=== PATIENT | female | born 1975 | race American Indian/Alaskan Native ===

== ENCOUNTER 2018-04-03 07:44 | Inpatient (IN) | payer MEDICAID ==
[2018-04-03 09:25] LABS: BASO # 0.1 K/uL (0.0-0.2); BASO % 1.3 % (0.0-2.0); EOS % 0.3 % (0.0-4.0); HEMOGLOBIN 11.9 g/dL (11.0-16.0); LYMPH # 0.8 K/uL (1.0-4.3); MEAN CELL VOLUME 73.5 fL (81.0-99.0); MEAN CORPUSCULAR HEMOGLOBIN 24.6 pg (27.0-31.0); MEAN CORPUSCULAR HGB CONC 33.5 g/dL (33.0-37.0); MONO # 0.3 K/uL (0.0-0.8); MONO % 6.9 % (0.0-10.0); NEUT # 3.3 K/uL (1.8-7.0); NEUT % 73.5 % (50.0-75.0); NRBC % 0.1 % (0.0-2.0); RBC 4.84 Mil/uL (3.80-5.20); WHITE BLOOD COUNT 4.5 K/uL (4.8-10.8)
[2018-04-03 09:34] LABS: ALBUMIN 3.8 g/dL (3.5-5.0); ALT/SGPT 82 U/L (9-52); AST/SGOT 114 U/L (14-36); BLOOD UREA NITROGEN 6 mg/dL (7-17); CALCIUM 8.9 mg/dl (8.6-10.4); GFR NON-AFRICAN AMERICAN > 60; LIPASE 170 U/L (23-300)
[2018-04-03] MEDS ORDERED: Magnesium Sulfate 1 gm in D5W 1 GM/100 ML BAG IVPB ONE ×2 (09:40→10:17)
[2018-04-03 10:04] LABS: BARBITURATES, UR NEGATIVE (NEGATIVE); BENZODIAZEPINES, UR NEGATIVE (NEGATIVE); OPIATES, UR NEGATIVE (NEGATIVE); PHENCYCLIDINE, UR NEGATIVE (NEGATIVE)
--- NOTE | 2018-04-03 12:14 | C.PDOC ---
History Of Present Illness 42 year old female presents to the ED under police custody for medical clearance of her multiple complaints. Patient reports history of PE in October, and states she has been noncompliant with Eliquis for 1.5 months. Patient also complains of abdominal pain and decreased PO intake for two weeks. Patient also states she had her last drink at around 1000 yesterday and believes she is withdrawing. She denies fever, chills, chest pain. Time Seen by Provider: 04/03/18 08:24 Chief Complaint (Nursing): Medical Clearance History Per: Patient History/Exam Limitations: no limitations Onset/Duration Of Symptoms: Days Current Symptoms Are (Timing): Still Present Additional History Per: Patient Past Medical History Reviewed: Historical Data, Nursing Documentation, Vital Signs Vital Signs: Last Vital Signs Temp 98.2 F 04/05/18 07:00 Pulse 104 H 04/05/18 07:00 Resp 20 04/05/18 07:00 BP 100/70 04/05/18 07:00 Pulse Ox 100 04/05/18 10:05 - Medical History PMH: Anemia, Pulmonary Embolism Other PMH: alcohol abuse Other Surgeries: gastric bypass surgery Family History: States: Unknown Family Hx - Social History Hx Alcohol Use: Yes Hx Substance Use: No (denies) - Immunization History Hx Tetanus Toxoid Vaccination: No Hx Influenza Vaccination: No Hx Pneumococcal Vaccination: No Review Of Systems Constitutional: Positive for: Other (decreased PO intake ). Negative for: Fever , Chills Cardiovascular: Negative for: Chest Pain, Light Headedness Respiratory: Negative for: Cough, Shortness of Breath, Hemoptysis Gastrointestinal: Positive for: Nausea, Abdominal Pain. Negative for: Vomiting Neurological: Negative for: Weakness, Numbness Psych: Positive for: Withdrawal Physical Exam - Physical Exam Appears: Non-toxic, No Acute Distress Skin: Normal Color, Warm, Dry Head: Atraumatic, Normacephalic Eye(s): bilateral: Normal Inspection Oral Mucosa: Moist Neck: Supple Chest: Symmetrical, No Deformity, No Tenderness Cardiovascular: Rhythm Regular, No Murmur Respiratory: Normal Breath Sounds, No Rales, No Rhonchi, No Wheezing Gastrointestinal/Abdominal: Bowel Sounds, Soft, Tenderness (mild, upper abdomen ), No Distention, No Guarding, No Rebound, Other (multiple healed laparoscopic scars ) Extremity: Normal ROM, No Calf Tenderness, Capillary Refill (less than 2 seconds ) Neurological/Psych: Oriented x3, Normal Speech, Normal Cognition, Cerebellar Signs, Normal Sensation, Other (mild tremor noted to hands ) ED Course And Treatment - Laboratory Results Result Diagrams: 04/05/18 07:43 04/05/18 07:43 O2 Sat by Pulse Oximetry: 100 (on RA) Pulse Ox Interpretation: Normal - CT Scan/US CT Chest Other Rad Studies (CT/US): Read By Radiologist, Radiology Report Reviewed CT/US Interpretation: Date of service: 04/03/18. CTA chest PE protocol. Indication: History of PE. Technique: Contiguous axial images were obtained through the chest with intravenous contrast enhancement. Sagittal and coronal reconstructions were generated and reviewed. This CT exam was performed using 1 or more of the following dose reduction techniques: Automated exposure control , adjustment of the MAA and/or kV according to patient size, and/or use of iterative reconstruction technique. IV Contrast: 100 mL Visipaque IV. . Radiation dose (DLP): 371.20 MGy-cm. Comparison: None available. Findings: Visualized portions of the inferior thyroid gland appear unremarkable. The mediastinal and hilar vascular structures appear within normal limits. The heart appears within normal limits of size. No large central or segmental pulmonary embolus evident. No focal consolidation. No pleural effusion. No pneumothorax. No suspicious pulmonary nodules measuring greater than 5 mm. Limited visualized portions of the upper abdomen: Severe diffuse hypoattenuation of the liver consistent with hepatic steatosis. Partially imaged hepatomegaly. Postsurgical gastric changes. Moderate-sized hiatal hernia and distal esophageal wall thickening. No acute osseous abnormality is detected. Impression: No large central or segmental pulmonary embolus evident. Limited visualized portions of the upper abdomen: Severe diffuse hypoattenuation of the liver consistent with hepatic steatosis. Partially imaged hepatomegaly. Postsurgical gastric changes. Moderate-sized hiatal hernia and distal esophageal wall thickening. Medical Decision Making Medical Decision Making: Progress: Bloodwork, urinalysis, CT Angio Chest PE ordered and reviewed. Ativan IVP and Pepcid IVP given. Disposition Discussed With : Raleigh Graves Doctor Will See Patient In The: Hospital - Disposition Disposition: HOSPITALIZED Disposition Time: 12:13 Condition: GOOD - Clinical Impression Clinical Impression: Alcohol withdrawal, Abdominal pain - PA / EMERGENCY MEDICAL SERVICE MANAGER / Resident Statement MD/DO has reviewed & agrees with the documentation as recorded. - Scribe Statement The provider has reviewed the documentation as recorded by the Scribe (Pebbles Serrano) All medical record entries made by the Scribe were at my direction and personally dictated by me. I have reviewed the chart and agree that the record accurately reflects my personal performance of the history, physical exam, medical decision making, and the department course for this patient. I have also personally directed, reviewed, and agree with the discharge instructions and disposition.
[2018-04-03] MEDS ORDERED: Iodixanol 320 MG/ML 100 ML BOTTLE IV ONE (13:33)
--- NOTE | 2018-04-03 13:48 | CT ---
Date of service: 04/03/18 CTA chest PE protocol Indication: History of PE Technique: Contiguous axial images were obtained through the chest with intravenous contrast enhancement. Sagittal and coronal reconstructions were generated and reviewed. This CT exam was performed using 1 or more of the following dose reduction techniques: Automated exposure control, adjustment of the MAA and/or kV according to patient size, and/or use of iterative reconstruction technique. IV Contrast: 100 mL Visipaque IV Radiation dose (DLP): 371.20 MGy-cm. Comparison: None available Findings: Visualized portions of the inferior thyroid gland appear unremarkable. The mediastinal and hilar vascular structures appear within normal limits. The heart appears within normal limits of size. No large central or segmental pulmonary embolus evident. No focal consolidation. No pleural effusion. No pneumothorax. No suspicious pulmonary nodules measuring greater than 5 mm. Limited visualized portions of the upper abdomen: Severe diffuse hypoattenuation of the liver consistent with hepatic steatosis. Partially imaged hepatomegaly. Postsurgical gastric changes. Moderate-sized hiatal hernia and distal esophageal wall thickening. No acute osseous abnormality is detected. Impression: No large central or segmental pulmonary embolus evident. Limited visualized portions of the upper abdomen: Severe diffuse hypoattenuation of the liver consistent with hepatic steatosis. Partially imaged hepatomegaly. Postsurgical gastric changes. Moderate-sized hiatal hernia and distal esophageal wall thickening.
--- NOTE | 2018-04-03 15:26 | CP.PCM.HP ---
<JoelGetachew - Last Filed: 04/03/18 18:15> History of Present Illness - History of Present Illness History of Present Illness: PGY-1 H&P for Dr. Graves Patient is a 42 yo female brought into ED under police custody for abdominal pain and tremors, likely secondary to alcohol withdrawal. As per patient, she experiences tremors each morning daily and drinks to subside them. She drinks approximately 4-5 pints of vodka/day. She has drunk heavily for several years and states her last drink was last night. Patient also complains of epigastric abdominal pain that travels to the back and flanks b/l. She endorses nausea/vomiting (6-7 episodes)/diarrhea and dizziness. Of note, patient states she has history of PE and was taking eliquis but has not been taking for the past 2 months. No fevers or chills, chest pain, palpitations, sob , constipation, or dysuria. PMHx: anemia (received transfusion of 2PRBCs in 10/2017 at [facility] in [place]), PE PSHx: gastric bypass (2011), hernia repair (2016)--both in [facility], per patient Family Hx: Mother- of alcoholism, Father- of "heart problems"; 1 living brother Social Hx: 4-5 pints vodka/day, smokes 4-5 cigarettes/day for ~ 10 years, denies illicit drug use Home Medications: omeprazole 40 mg PO daily, eliquis 5 mg PO BID (has not been taking for the past 2 months) Allergies: None PMD: None Present on Admission - Present on Admission Any Indicators Present on Admission: Yes History of DVT/PE: Yes History of Uncontrolled Diabetes: No Urinary Catheter: No Decubitus Ulcer Present: No Review of Systems - Constitutional Constitutional: As Per HPI, Anorexia, Headache. absent: Chills, Excessive Sweating, Fever, Increased Appetite, Night Sweats, Weakness - EENT Eyes: As Per HPI. absent: Blurred Vision, Change in Vision, Diplopia Ears: As Per HPI. absent: Abnormal Hearing Nose/Mouth/Throat: As Per HPI, Dry Mouth - Cardiovascular Cardiovascular: As Per HPI, Leg Edema (mild non-pitting edema L>R). absent: Chest Pain, Diaphoresis - Respiratory Respiratory: As Per HPI. absent: Dyspnea, Wheezing, Stridor - Gastrointestinal Gastrointestinal: As Per HPI, Abdominal Pain (epigastrium), Diarrhea, Nausea, Vomiting. absent: Coffee Ground Emesis, Constipation, Hematemesis, Hematochezia , Melena - Musculoskeletal Musculoskeletal: As Per HPI, Back Pain. absent: Abnormal Gait, Arthralgias, Myalgias, Radiating Pain into Limb - Neurological Neurological: As Per HPI, Dizziness. absent: Abnormal Gait, Abnormal Hearing, Abnormal Speech, Confusion, Numbness, Frequent Falls, Syncope, Tingling - Psychiatric Psychiatric: As Per HPI - Endocrine Endocrine: As Per HPI Past Patient History - Past Social History Smoking Status: Current Some Days Smoker - PULMONARY Hx Pulmonary Embolism: Yes - HEMATOLOGICAL/ONCOLOGICAL Hx Anemia: Yes - PSYCHIATRIC Hx Substance Use: No (denies) - SURGICAL HISTORY Hx Surgeries: Yes Hx Gastric Bypass Surgery: Yes - ANESTHESIA Hx Anesthesia: Yes Hx Anesthesia Reactions: No Meds Allergies/Adverse Reactions: Allergies Allergy/AdvReac Type Severity Reaction Status Date / Time No Known Allergies Allergy Verified 04/03/18 08:01 Physical Exam - Constitutional Appears: Non-toxic, Agitated - Head Exam Head Exam: ATRAUMATIC, NORMAL INSPECTION, NORMOCEPHALIC - Eye Exam Eye Exam: EOMI, Normal appearance. absent: Scleral icterus Pupil Exam: NORMAL ACCOMODATION - ENT Exam ENT Exam: Mucous Membranes Dry, Normal Exam - Neck Exam Neck exam: Positive for: Normal Inspection - Respiratory Exam Respiratory Exam: Clear to Auscultation Bilateral, NORMAL BREATHING PATTERN - Cardiovascular Exam Cardiovascular Exam: REGULAR RHYTHM, +S1, +S2 - GI/Abdominal Exam GI & Abdominal Exam: Normal Bowel Sounds, Soft, Tenderness (TTP in epigastrium ) . absent: Distended, Firm, Guarding, Mass, Rigid - Back Exam Back exam: NORMAL INSPECTION, paraspinal tenderness - Neurological Exam Neurological exam: Alert, Oriented x3 - Psychiatric Exam Additional comments: Patient in mild withdrawal; exhibits tremors but calm and cooperative - Skin Skin Exam: Dry, Intact, Normal Color Results - Vital Signs Recent Vital Signs: Last Vital Signs Temp 97.6 F 04/03/18 07:54 Pulse 89 04/03/18 11:47 Resp 18 04/03/18 13:02 BP 128/83 04/03/18 11:47 Pulse Ox 100 04/03/18 12:14 - Labs Result Diagrams: 04/03/18 09:19 04/03/18 09:19 Labs: Laboratory Results - last 24 hr 04/03/18 04/03/18 04/03/18 09:19 09:19 09:19 WBC 4.5 L RBC 4.84 Hgb 11.9 Hct 35.5 MCV 73.5 L MCH 24.6 L MCHC 33.5 RDW 23.0 H Plt Count 214 MPV 7.0 L Neut % (Auto) 73.5 Lymph % (Auto) 18.0 L [place] % (Auto) 6.9 Eos % (Auto) 0.3 Baso % (Auto) 1.3 Neut # (Auto) 3.3 Lymph # (Auto) 0.8 L [place] # (Auto) 0.3 Eos # (Auto) 0.0 Baso # (Auto) 0.1 Sodium 142 Potassium 3.5 L Chloride 103 Carbon Dioxide 26 Anion Gap 17 BUN 6 L Creatinine 0.6 L Est GFR ( Amer) > 60 Est GFR (Non-Af Amer) > 60 Random Glucose 106 H Calcium 8.9 Magnesium 1.5 L Total Bilirubin 0.7 AST 114 H ALT 82 H Alkaline Phosphatase 101 Total Protein 7.6 Albumin 3.8 Globulin 3.8 Albumin/Globulin Ratio 1.0 Lipase 170 Urine HCG, Qual Urine Opiates Screen Negative Urine Methadone Screen Negative Ur Barbiturates Screen Negative Ur Phencyclidine Scrn Negative Ur Amphetamines Screen Negative U Benzodiazepines Scrn Negative U Oth Cocaine Metabols Negative U Cannabinoids Screen Negative Alcohol, Quantitative 73 H 04/03/18 09:19 WBC RBC Hgb Hct MCV MCH MCHC RDW Plt Count MPV Neut % (Auto) Lymph % (Auto) [place] % (Auto) Eos % (Auto) Baso % (Auto) Neut # (Auto) Lymph # (Auto) [place] # (Auto) Eos # (Auto) Baso # (Auto) Sodium Potassium Chloride Carbon Dioxide Anion Gap BUN Creatinine Est GFR ( Amer) Est GFR (Non-Af Amer) Random Glucose Calcium Magnesium Total Bilirubin AST ALT Alkaline Phosphatase Total Protein Albumin Globulin Albumin/Globulin Ratio Lipase Urine HCG, Qual Negative Urine Opiates Screen Urine Methadone Screen Ur Barbiturates Screen Ur Phencyclidine Scrn Ur Amphetamines Screen U Benzodiazepines Scrn U Oth Cocaine Metabols U Cannabinoids Screen Alcohol, Quantitative Assessment & Plan - Assessment and Plan (Free Text) Assessment: 42 yo female brought into ED under police custody for abdominal pain and alcohol withdrawal. Of note, patient has hx of PE and is on home eliquis but has not taken for the past 2 months. Plan: 1. Alcohol Abuse/Withdrawal -urine drug screen: negative -alcohol, quantitative: 73 -alcohol withdrawal assessment q3 -WA protocol -aspiration precautions -folic acid 1 mg PO daily -thiamine 100 mg PO daily -librium taper -trazadone 50 mg PO HS PRN -Banana Bag x1 @ 150 cc/hr 2. Epigastric abdominal pain, r/o acute pancreatitis -afebrile, no leukocytosis -lipase 170 -CTA chest: no large central or segmental PE; severe diffuse hypoattenuation of the liver consistent with hepatic steatosis. Partially imaged hepatomegaly. Postsurgical gastric changes. Moderate-sized hiatal hernia and distal esophageal wall thickening 3. Hx of PE -r/o PE -CTA chest: no large central or segmental PE; severe diffuse hypoattenuation of the liver consistent with hepatic steatosis. Partially imaged hepatomegaly. Postsurgical gastric changes. Moderate-sized hiatal hernia and distal esophageal wall thickening -D-dimer pending -continue home eliquis 5 mg PO daily 4. Hx of anemia -Hb/Hct: 11.9/35.5 -was transfused 2 units PRBCs in 10/2017 at [facility] 5. PPx, Diet, Disposition -DVT risk 4 (Age, Hx of PE): Heparin 5000 units SC q8, SCDs b/l -GI ppx: not indicated -heart healthy diet -patient to be extradited to [place] by police, pending medical clearance Case discussed with Dr. Ely Maldonado, PGY-1 <Raleigh Graves - Last Filed: 04/03/18 18:22> Results - Vital Signs Recent Vital Signs: Last Vital Signs Temp 98.3 F 04/03/18 16:05 Pulse 85 04/03/18 16:05 Resp 20 04/03/18 16:05 BP 132/89 04/03/18 16:05 Pulse Ox 99 04/03/18 16:05 - Labs Result Diagrams: 04/03/18 09:19 04/03/18 09:19 Labs: Laboratory Results - last 24 hr 04/03/18 04/03/18 04/03/18 09:19 09:19 09:19 WBC 4.5 L RBC 4.84 Hgb 11.9 Hct 35.5 MCV 73.5 L MCH 24.6 L MCHC 33.5 RDW 23.0 H Plt Count 214 MPV 7.0 L Neut % (Auto) 73.5 Lymph % (Auto) 18.0 L [place] % (Auto) 6.9 Eos % (Auto) 0.3 Baso % (Auto) 1.3 Neut # (Auto) 3.3 Lymph # (Auto) 0.8 L [place] # (Auto) 0.3 Eos # (Auto) 0.0 Baso # (Auto) 0.1 Sodium 142 Potassium 3.5 L Chloride 103 Carbon Dioxide 26 Anion Gap 17 BUN 6 L Creatinine 0.6 L Est GFR ( Amer) > 60 Est GFR (Non-Af Amer) > 60 Random Glucose 106 H Calcium 8.9 Magnesium 1.5 L Total Bilirubin 0.7 AST 114 H ALT 82 H Alkaline Phosphatase 101 Total Protein 7.6 Albumin 3.8 Globulin 3.8 Albumin/Globulin Ratio 1.0 Lipase 170 Urine HCG, Qual Urine Opiates Screen Negative Urine Methadone Screen Negative Ur Barbiturates Screen Negative Ur Phencyclidine Scrn Negative Ur Amphetamines Screen Negative U Benzodiazepines Scrn Negative U Oth Cocaine Metabols Negative U Cannabinoids Screen Negative Alcohol, Quantitative 73 H 04/03/18 09:19 WBC RBC Hgb Hct MCV MCH MCHC RDW Plt Count MPV Neut % (Auto) Lymph % (Auto) [place] % (Auto) Eos % (Auto) Baso % (Auto) Neut # (Auto) Lymph # (Auto) [place] # (Auto) Eos # (Auto) Baso # (Auto) Sodium Potassium Chloride Carbon Dioxide Anion Gap BUN Creatinine Est GFR ( Amer) Est GFR (Non-Af Amer) Random Glucose Calcium Magnesium Total Bilirubin AST ALT Alkaline Phosphatase Total Protein Albumin Globulin Albumin/Globulin Ratio Lipase Urine HCG, Qual Negative Urine Opiates Screen Urine Methadone Screen Ur Barbiturates Screen Ur Phencyclidine Scrn Ur Amphetamines Screen U Benzodiazepines Scrn U Oth Cocaine Metabols U Cannabinoids Screen Alcohol, Quantitative Attending/Attestation - Attestation I have personally seen and examined this patient.: Yes I have fully participated in the care of the patient.: Yes I have reviewed all pertinent clinical information: Yes Notes (Text): 04/03/18 18:22 Medical attending: Patient was seen and examined by me, reviewed the above note by the general medical practitioner and agree with the above note. This is a 42-year-old female who was brought in under arrest by the police. The police were concerned because she is pending extradition to [place]. The places were concerned about the patient's history of drinking. The patient reported that she does drink rather heavily and that she also has a history of a pulmonary embolus when asked where she was diagnosed with this pulmonary embolism she said that she was at a hospital in [place] When we came and saw the patient she did have some very fine tremors on physical exam, she reported some nausea vomiting abdominal tenderness as well. She also reported some loose watery stools which is pretty consistent with alcohol abuse With regards to the ulnar embolism I asked the emergency room to do a CTA and this was negative for PE however I don't know how long ago this diagnosis of a pulmonary embolus was made so for the time being worker place the patient back on the [facility] was. Patient is going to be on a tapering Ativan CIIL protocol. There also be IV Ativan just when necessary for breakthrough symptoms The patient was cooperative with us. She was under monitored by police were outside of the patient's room thank you Raleigh Graves
[2018-04-03] MEDS ORDERED: Multivitamin (MVI) 10 ML, Thiamine 100 MG, Folic Acid 1 MG in Sodium Chloride 0.9% 1,00... IV ONE (16:00)
[2018-04-03 16:06] VITALS: RESP 20
[2018-04-04 07:39] LABS: BASO % 1.5 % (0.0-2.0); EOS % 1.1 % (0.0-4.0); HEMOGLOBIN 10.3 g/dL (11.0-16.0); LYMPH # 0.8 K/uL (1.0-4.3); LYMPH % 23.9 % (20.0-40.0); MEAN CELL VOLUME 74.2 fL (81.0-99.0); MEAN CORPUSCULAR HEMOGLOBIN 25.6 pg (27.0-31.0); MEAN CORPUSCULAR HGB CONC 34.5 g/dL (33.0-37.0); MEAN PLATELET VOLUME 7.4 fL (7.2-11.7); MONO # 0.2 K/uL (0.0-0.8); MONO % 7.6 % (0.0-10.0); NEUT # 2.1 K/uL (1.8-7.0); NEUT % 65.9 % (50.0-75.0); NRBC % 0.1 % (0.0-2.0); RBC 4.02 Mil/uL (3.80-5.20); WHITE BLOOD COUNT 3.2 K/uL (4.8-10.8)
[2018-04-04 08:05] LABS: ALB/GLOB RATIO 0.9 (1.0-2.1); ALBUMIN 2.9 g/dL (3.5-5.0); ALT/SGPT 67 U/L (9-52); AST/SGOT 92 U/L (14-36); BLOOD UREA NITROGEN 9 mg/dL (7-17); CALCIUM 8.5 mg/dl (8.6-10.4); GFR NON-AFRICAN AMERICAN > 60
[2018-04-04] MEDS ORDERED: Potassium Chloride 20 mEq ER Tab PO ONE (09:47)
[2018-04-04 11:08] LABS: HEPATITIS B SURFACE AG Negative (NEGATIVE)
[2018-04-04 11:14] LABS: HEPATITIS A IGM NEGATIVE (NEGATIVE); HEPATITIS B CORE AB NEGATIVE (NEGATIVE)
[2018-04-04 11:25] LABS: HEPATITIS C ANTIBODY NEGATIVE (NEGATIVE)
--- NOTE | 2018-04-04 11:27 | CP.PCM.PN ---
<Chanel Parr - Last Filed: 04/04/18 20:11> Subjective - Date & Time of Evaluation Date of Evaluation: 04/04/18 Time of Evaluation: 11:24 - Subjective Subjective: Chanel Parr PGY1 -- Medicine Progress Note for Dr. Graves Patient was seen and evaluated at bedside this morning. Patient says she still has tremors, and has not had an appetite yet. Patient reports 1 episode of hematemesis today, but otherwise denies chest pain, shortness and/or abdominal pain. No acute events occurred over night, per patient. Patient reports she was having loose stools about 4 times per day since admission. Patient otherwise denies any dysuria, fever, numbness and/or tingling in lower extremities. Objective - Vital Signs/Intake and Output Vital Signs (last 24 hours): Temp Pulse Resp BP Pulse Ox 98.1 F 79 20 128/88 99 04/04/18 07:00 04/04/18 07:00 04/04/18 07:00 04/04/18 07:00 04/04/18 07:00 Intake and Output: 04/04/18 04/04/18 06:59 18:59 Intake Total 1240 Balance 1240 - Medications Medications: Current Medications Apixaban (Eliquis) 5 mg PO BID [facility] Chlordiazepoxide (Librium) 25 mg PO Q6 [facility] PRN Reason: Taper Stop: 04/07/18 17:59 Last Admin: 04/04/18 05:37 Dose: 25 mg Folic Acid (Folic Acid) 1 mg PO DAILY [facility] Last Admin: 04/04/18 11:14 Dose: 1 mg Lorazepam (Ativan) 1 mg IVP Q4H PRN PRN Reason: Symptoms of alcohol withdrawl Last Admin: 04/04/18 04:13 Dose: 1 mg Thiamine HCl (Vitamin B1 Tab) 100 mg PO DAILY [facility] Last Admin: 04/04/18 11:14 Dose: 100 mg Trazodone HCl (Desyrel) 50 mg PO HS PRN PRN Reason: Insomnia - Labs Labs: 04/04/18 07:24 04/04/18 07:24 APTT 31 SECONDS (21-34) 04/04/18 07:24 - Additional Findings Additional findings: - Constitutional Appears: Non-toxic, Agitated - Head Exam Head Exam: ATRAUMATIC, NORMAL INSPECTION, NORMOCEPHALIC - Eye Exam Eye Exam: EOMI, Normal appearance. absent: Scleral icterus Pupil Exam: NORMAL ACCOMODATION - ENT Exam ENT Exam: Mucous Membranes Dry, Normal Exam - Neck Exam Neck exam: Positive for: Normal Inspection - Respiratory Exam Respiratory Exam: Clear to Auscultation Bilateral, NORMAL BREATHING PATTERN - Cardiovascular Exam Cardiovascular Exam: REGULAR RHYTHM, +S1, +S2 - GI/Abdominal Exam GI & Abdominal Exam: Normal Bowel Sounds, Soft. absent: Distended, Firm, Guarding, Mass, Rigid - Back Exam Back exam: NORMAL INSPECTION, paraspinal tenderness - Neurological Exam Neurological exam: Alert, Oriented x3 - Psychiatric Exam Additional comments: Patient in mild withdrawal; exhibits tremors but calm and cooperative - Skin Skin Exam: Warm, moist, Intact, Normal Color Assessment and Plan - Assessment and Plan (Free Text) Assessment: This is a 42 year old female brought into ED under police custody for abdominal pain and alcohol withdrawal. Of note, patient has reported history pulmonary embolism and is on home eliquis but has not taken for the past 2 months. Plan: Alcohol Abuse/Withdrawal - Urine drug screen: negative - CIWA score overnight =6 - On admission: Alcohol, quantitative: 73 - Continue alcohol withdrawal assessment q3 - Continue CIWA protocol - Continue aspiration precautions - Continue folic acid 1 mg PO daily - Continue thiamine 100 mg PO daily - Continue librium taper - Continue trazadone 50 mg PO HS PRN - Completed: Banana Bag x1 @ 150 cc/hr - CMP: AST=92, down from 114. ALT=67, down from 82 - Continue to monitor Abnormal Urinalysis: - U/A: Blood=3+, Nitrate=positive, Bilirubin=1+,Urobilinogen=4.0, RBC=4, Amorphous sediment=few, Squ. Ep. cells=5, LE=neg - Patient asymptomatic History of Anemia - Hgb=10.3 (down from 11.9), Hct=29.8 (down from 35.5), Platelets 162 (down from 214) * Repeat CBC ordered for tonight 20:00 * Repeat CBC ordered for AM * Type & Cross ordered * Will continue to monitor - Reportedly, patient was transfused 2 units PRBCs in 10/2017 at [facility], will call to confirm Hematemesis likely secondary to Mana Goff Tear - Patient had multiple episodes of vomitus day prior - Placed on clear liquid diet, advance as tolerated - Will trend Hgb/Hct tonight and in AM - Monitor Hypokalemia - K+=3.4, down from 3.5 - Repleted with 20meq K+ - Continue to replete K+ as needed Epigastric abdominal pain, rule-out acute pancreatitis - Afebrile, No leukocytosis - Lipase 170 - CTA chest: no large central or segmental PE; severe diffuse hypoattenuation of the liver consistent with hepatic steatosis. Partially imaged hepatomegaly. Postsurgical gastric changes. Moderate-sized hiatal hernia and distal esophageal wall thickening - Hepatitis panel: Negative History of Pulmonary Embolism (PE), rule-out PE - Call to confirm patient's reported history at [facility] - CTA chest: no large central or segmental PE; severe diffuse hypoattenuation of the liver consistent with hepatic steatosis. Partially imaged hepatomegaly. Postsurgical gastric changes. Moderate-sized hiatal hernia and distal esophageal wall thickening - D-dimer [id number]=[id number] - Start eliquis 5 mg PO BID - Discontinue Heparin PPx, Diet, Disposition - DVT risk 4 (Age, Hx of PE): Start: Eliquis 5mg BID PO Discontinued: Heparin 5000 units SC q8 Continue: SCDs b/l - GI ppx: not indicated - heart healthy diet - Patient to be extradited to [place] by police, pending medical clearance Patient seen and case discussed with Dr. Ely Parr PGY-1 <Raleigh Graves H - Last Filed: 04/05/18 07:31> Objective - Vital Signs/Intake and Output Vital Signs (last 24 hours): Temp Pulse Resp BP Pulse Ox 97.9 F 100 H 20 95/65 L 100 04/05/18 00:00 04/05/18 00:00 04/05/18 00:00 04/05/18 00:00 04/05/18 00:00 - Medications Medications: Current Medications Apixaban (Eliquis) 5 mg PO BID [facility] Last Admin: 04/04/18 17:24 Dose: 5 mg Chlordiazepoxide (Librium) 25 mg PO TID [facility] PRN Reason: Taper Stop: 04/07/18 17:59 Last Admin: 04/04/18 17:24 Dose: 25 mg Folic Acid (Folic Acid) 1 mg PO DAILY [facility] Last Admin: 04/04/18 11:14 Dose: 1 mg Lorazepam (Ativan) 1 mg IVP Q4H PRN PRN Reason: Symptoms of alcohol withdrawl Last Admin: 04/05/18 06:10 Dose: 1 mg Thiamine HCl (Vitamin B1 Tab) 100 mg PO DAILY [facility] Last Admin: 04/04/18 11:14 Dose: 100 mg Trazodone HCl (Desyrel) 50 mg PO HS PRN PRN Reason: Insomnia Last Admin: 04/04/18 21:41 Dose: 50 mg - Labs Labs: 04/04/18 20:54 04/04/18 07:24 APTT 31 SECONDS (21-34) 04/04/18 07:24 Attending/Attestation - Attestation I have personally seen and examined this patient.: Yes I have fully participated in the care of the patient.: Yes I have reviewed all pertinent clinical information, including history, physical exam and plan: Yes Notes (Text): 04/05/18 07:28 Medical attending: Patient was seen and examined by me. Agree with the above note by the resident The patient continues to have law enforcement presence in room. Patient was cooperative with exam. We are continuing with the alcohol detox withdrawal protocol. At this time the patient is on the anticoagulation Eliquis, however if there are problems with this then we will need to hold this. Raleigh Graves
[2018-04-04 16:39] LABS: SQUAMOUS EPITHIAL 5 /hpf (0-5); URINE AMORPHOUS SEDIMENT FEW /ul (<OCC); URINE BILIRUBIN 1+ (NEGATIVE); URINE BLOOD 3+ (NEGATIVE); URINE CLARITY Hazy (Clear); URINE COLOR Amber (YELLOW); URINE GLUCOSE (UA) NORMAL (Normal); URINE LEUKOCYTE ESTERASE NEG Leu/uL (Negative); URINE PROTEIN NEGATIVE (NEGATIVE)
[2018-04-04 21:05] LABS: BASO % 0.8 % (0.0-2.0); EOS % 1.1 % (0.0-4.0); HEMOGLOBIN 10.1 g/dL (11.0-16.0); LYMPH # 1.2 K/uL (1.0-4.3); LYMPH % 29.8 % (20.0-40.0); MEAN CELL VOLUME 75.1 fL (81.0-99.0); MEAN CORPUSCULAR HEMOGLOBIN 24.6 pg (27.0-31.0); MEAN CORPUSCULAR HGB CONC 32.8 g/dL (33.0-37.0); MEAN PLATELET VOLUME 7.8 fL (7.2-11.7); MONO # 0.3 K/uL (0.0-0.8); MONO % 7.7 % (0.0-10.0); NEUT # 2.4 K/uL (1.8-7.0); NEUT % 60.6 % (50.0-75.0); NRBC % 0.1 % (0.0-2.0); RBC 4.11 Mil/uL (3.80-5.20); RED CELL DISTRIBUTION WIDTH 22.4 % (11.5-14.5)
[2018-04-05 07:53] LABS: BASO % 0.6 % (0.0-2.0); HEMOGLOBIN 9.9 g/dL (11.0-16.0); LYMPH # 1.2 K/uL (1.0-4.3); LYMPH % 27.6 % (20.0-40.0); MEAN CELL VOLUME 75.1 fL (81.0-99.0); MEAN CORPUSCULAR HEMOGLOBIN 25.7 pg (27.0-31.0); MEAN CORPUSCULAR HGB CONC 34.1 g/dL (33.0-37.0); MEAN PLATELET VOLUME 7.9 fL (7.2-11.7); MONO # 0.3 K/uL (0.0-0.8); NEUT # 2.8 K/uL (1.8-7.0); NEUT % 63.8 % (50.0-75.0); NRBC % 0.1 % (0.0-2.0); RBC 3.86 Mil/uL (3.80-5.20); RED CELL DISTRIBUTION WIDTH 22.5 % (11.5-14.5); WHITE BLOOD COUNT 4.4 K/uL (4.8-10.8)
[2018-04-05 08:03] LABS: ALBUMIN 2.9 g/dL (3.5-5.0); ALT/SGPT 57 U/L (9-52); AST/SGOT 87 U/L (14-36); BLOOD UREA NITROGEN 16 mg/dL (7-17); CALCIUM 8.5 mg/dl (8.6-10.4); GFR NON-AFRICAN AMERICAN > 60
[2018-04-05 08:22] VITALS: BP 100/70; PULSE 104; TEMP 98.2
--- NOTE | 2018-04-05 09:43 | CP.PCM.DIS ---
<Chanel Parr - Last Filed: 04/05/18 13:37> Provider - Provider Date of Admission: 04/03/18 14:07 Attending physician: Raleigh Graves DO Primary care physician: Patient denied Time Spent in preparation of Discharge (in minutes): 45 Diagnosis - Discharge Diagnosis (1) Alcohol withdrawal Status: Acute Priority: High Hospital Course - Lab Results Lab Results: Most Recent Lab Values WBC 4.4 K/uL (4.8-10.8) L 04/05/18 07:43 RBC 3.86 Mil/uL (3.80-5.20) 04/05/18 07:43 Hgb 9.9 g/dL (11.0-16.0) L 04/05/18 07:43 Hct 29.0 % (34.0-47.0) L 04/05/18 07:43 MCV 75.1 fL (81.0-99.0) L 04/05/18 07:43 MCH 25.7 pg (27.0-31.0) L 04/05/18 07:43 MCHC 34.1 g/dL (33.0-37.0) 04/05/18 07:43 RDW 22.5 % (11.5-14.5) H 04/05/18 07:43 Plt Count 186 K/uL (130-400) 04/05/18 07:43 MPV 7.9 fL (7.2-11.7) 04/05/18 07:43 Neut % (Auto) 63.8 % (50.0-75.0) 04/05/18 07:43 Lymph % (Auto) 27.6 % (20.0-40.0) 04/05/18 07:43 Walker % (Auto) 7.0 % (0.0-10.0) 04/05/18 07:43 Eos % (Auto) 1.0 % (0.0-4.0) 04/05/18 07:43 Baso % (Auto) 0.6 % (0.0-2.0) 04/05/18 07:43 Neut # (Auto) 2.8 K/uL (1.8-7.0) 04/05/18 07:43 Lymph # (Auto) 1.2 K/uL (1.0-4.3) 04/05/18 07:43 Walker # (Auto) 0.3 K/uL (0.0-0.8) 04/05/18 07:43 Eos # (Auto) 0.0 K/uL (0.0-0.7) 04/05/18 07:43 Baso # (Auto) 0.0 K/uL (0.0-0.2) 04/05/18 07:43 APTT 31 SECONDS (21-34) 04/04/18 07:24 D-Dimer, Quantitative 334 ng/mlDDU (0-243) H 04/03/18 19:42 Sodium 139 mmol/L (132-148) 04/05/18 07:43 Potassium 4.2 mmol/L (3.6-5.2) 04/05/18 07:43 Chloride 104 mmol/L (98-107) 04/05/18 07:43 Carbon Dioxide 27 mmol/L (22-30) 04/05/18 07:43 Anion Gap 12 (10-20) 04/05/18 07:43 BUN 16 mg/dL (7-17) 04/05/18 07:43 Creatinine 0.6 mg/dL (0.7-1.2) L 04/05/18 07:43 Est GFR ( Amer) > 60 04/05/18 07:43 Est GFR (Non-Af Amer) > 60 04/05/18 07:43 POC Glucose (mg/dL) 85 mg/dL (65-110) 04/03/18 22:49 Random Glucose 96 mg/dL (65-105) 04/05/18 07:43 Calcium 8.5 mg/dl (8.6-10.4) L 04/05/18 07:43 Phosphorus 2.8 mg/dL (2.5-4.5) 04/05/18 07:43 Magnesium 1.8 mg/dL (1.6-2.3) 04/05/18 07:43 Iron 102 ug/dL (37-170) 04/05/18 07:43 Total Bilirubin 0.5 mg/dL (0.2-1.3) 04/05/18 07:43 AST 87 U/L (14-36) H 04/05/18 07:43 ALT 57 U/L (9-52) H 04/05/18 07:43 Alkaline Phosphatase 72 U/L (38-126) 04/05/18 07:43 Total Protein 6.0 g/dL (6.3-8.3) L 04/05/18 07:43 Albumin 2.9 g/dL (3.5-5.0) L 04/05/18 07:43 Globulin 3.0 gm/dL (2.2-3.9) 04/05/18 07:43 Albumin/Globulin Ratio 1.0 (1.0-2.1) 04/05/18 07:43 Lipase 170 U/L (23-300) 04/03/18 09:19 Urine Color Marianela (YELLOW) 04/04/18 16:10 Urine Clarity Hazy (Clear) 04/04/18 16:10 Urine pH 7.0 (5.0-8.0) 04/04/18 16:10 Ur Specific [place] 1.018 (1.003-1.030) 04/04/18 16:10 Urine Protein Negative mg/dL (NEGATIVE) 04/04/18 16:10 Urine Glucose (UA) Normal mg/dL (Normal) 04/04/18 16:10 Urine Ketones Negative mg/dL (NEGATIVE) 04/04/18 16:10 Urine Blood 3+ (NEGATIVE) H 04/04/18 16:10 Urine Nitrate Positive (NEGATIVE) H 04/04/18 16:10 Urine Bilirubin 1+ (NEGATIVE) H 04/04/18 16:10 Urine Urobilinogen 4.0 mg/dL (0.2-1.0) H 04/04/18 16:10 Ur Leukocyte Esterase Neg Lorna/uL (Negative) 04/04/18 16:10 Urine WBC (Auto) 1 /hpf (0-5) 04/04/18 16:10 Urine RBC (Auto) 4 /hpf (0-3) H 04/04/18 16:10 Ur Squamous Epith Cells 5 /hpf (0-5) 04/04/18 16:10 Amorphous Sediment Few /ul (<OCC) H 04/04/18 16:10 Urine HCG, Qual Negative (NEGATIVE) 04/03/18 09:19 Urine Opiates Screen Negative (NEGATIVE) 04/03/18 09:19 Urine Methadone Screen Negative (NEGATIVE) 04/03/18 09:19 Ur Barbiturates Screen Negative (NEGATIVE) 04/03/18 09:19 Ur Phencyclidine Scrn Negative (NEGATIVE) 04/03/18 09:19 Ur Amphetamines Screen Negative (NEGATIVE) 04/03/18 09:19 U Benzodiazepines Scrn Negative (NEGATIVE) 04/03/18 09:19 U Oth Cocaine Metabols Negative (NEGATIVE) 04/03/18 09:19 U Cannabinoids Screen Negative (NEGATIVE) 04/03/18 09:19 Alcohol, Quantitative 73 mg/dl (0-10) H 04/03/18 09:19 Hepatitis A IgM Ab Negative (NEGATIVE) 04/04/18 10:02 Hep Bs Antigen Negative (NEGATIVE) 04/04/18 10:02 Hep B Core IgM Ab Negative (NEGATIVE) 04/04/18 10:02 Hepatitis C Antibody Negative (NEGATIVE) 04/04/18 10:02 Blood Type A POSITIVE 04/04/18 21:08 Antibody Screen Negative 04/04/18 21:08 - Hospital Course Hospital Course: Hospital Course Discharge Summary for Attending Physician, Dr. Graves Patient is a 42 yo female with history of anemia, pulmonary embolism (PE), who was brought into ED on 04/03 under police custody for abdominal pain and tremors, likely secondary to alcohol withdrawal. As per patient, she experienced tremors each morning daily and drinks to subside them. Patient states she drinks approximately 4-5 pints of vodka/day. She has drunk heavily for several years and stated her last drink was the night prior to arrival to ED. Patient also complained of epigastric abdominal pain that traveled to the back and flanks b/l. She endorsed nausea/vomiting (6-7 episodes) /diarrhea and dizziness. Of note, patient stated she has history of PE and was taking eliquis but has not been taking for the past 2 months. Patient denied fevers or chills, chest pain, palpitations, sob, constipation, or dysuria. Please see chart for more detail and for a full summary. Patient was subsequently admitted for alcohol withdrawal. Patient was placed on CIWA protocol, aspiration prevention protocol, and was treated with ativan taper. On the following day, the patient admitted to an episode of bloody vomitus, which was bright red. Patient's Hgb was 11.9 then downtrended to 10.3. Patient's hematocrit was 35.5, and downtrended to 29.8. Patient was type and screened, and monitored with CBC. CTA of chest was obtained due to history of PE and positive [id number], DVT risk=4, and per report, revealed, no large central or segmental PE; severe diffuse hypoattenuation of the liver consistent with hepatic steatosis. Partially imaged hepatomegaly. Postsurgical gastric changes. Moderate-sized hiatal hernia and distal esophageal wall thickening. Patient was started on eliquis 5mg PO BID. On the day of discharge, the patient was apparently released from police custody , and decided she wanted to go home against medical advice. Patient proceeded to request to sign out AGAINST MEDICAL ADVICE (AMA). This action is against both the attending physician's, Dr. Graves's medical advice to the patient and the decision was made with informed refusal. The patient was told that further workup is necessary for the patient, and a full explanation of the rationale was given. The risks of leaving were explained to the patient and include but are not limited to increased morbidity and mortality, , and worsening of known or unknown conditions, hallucinations, seizures, stroke, myocardial infarction, and/or bleeding. Patient was AAOX3 and was able to make this informed decision and understood the clinical situation and my explanation of the risks of leaving. The patient voluntarily accepted these risks and signed an AMA form documenting our conversation. The patient was given the opportunity ask questions and reconsider. The patient was encouraged to return to emergency room at any time for further care. He was advised to follow-up with her primary care doctor as soon as possible. Please see complete chart for full detailed history. Patient received no prescriptions. Patient was encouraged to follow up with primary care physician. Patient seen and case discussed with Attending Physician, Dr. Graves. Chanel Parr PGY1 Discharge Exam - Additional Findings Additional findings: Could not assess, as patient signed out against medical advice. Please see patient's chart for more detailed summary Discharge Plan - Follow Up Plan Condition: GUARDED Disposition: AGAINST MEDICAL ADVICE Additional Instructions: Patient was discharged against medical advice, as she was not medically stable for discharge today, per Attending Physician Dr. Graves. Patient was informed that she is able to return to the ED if her symptoms worsen. Patient did not receive prescriptions due to signing out against medical advice. <Raleigh Graves - Last Filed: 04/05/18 16:02> Provider - Provider Date of Admission: 04/03/18 14:07 Attending physician: Raleigh Graves DO Hospital Course - Lab Results Lab Results: Most Recent Lab Values WBC 4.4 K/uL (4.8-10.8) L 04/05/18 07:43 RBC 3.86 Mil/uL (3.80-5.20) 04/05/18 07:43 Hgb 9.9 g/dL (11.0-16.0) L 04/05/18 07:43 Hct 29.0 % (34.0-47.0) L 04/05/18 07:43 MCV 75.1 fL (81.0-99.0) L 04/05/18 07:43 MCH 25.7 pg (27.0-31.0) L 04/05/18 07:43 MCHC 34.1 g/dL (33.0-37.0) 04/05/18 07:43 RDW 22.5 % (11.5-14.5) H 04/05/18 07:43 Plt Count 186 K/uL (130-400) 04/05/18 07:43 MPV 7.9 fL (7.2-11.7) 04/05/18 07:43 Neut % (Auto) 63.8 % (50.0-75.0) 04/05/18 07:43 Lymph % (Auto) 27.6 % (20.0-40.0) 04/05/18 07:43 Walker % (Auto) 7.0 % (0.0-10.0) 04/05/18 07:43 Eos % (Auto) 1.0 % (0.0-4.0) 04/05/18 07:43 Baso % (Auto) 0.6 % (0.0-2.0) 04/05/18 07:43 Neut # (Auto) 2.8 K/uL (1.8-7.0) 04/05/18 07:43 Lymph # (Auto) 1.2 K/uL (1.0-4.3) 04/05/18 07:43 Walker # (Auto) 0.3 K/uL (0.0-0.8) 04/05/18 07:43 Eos # (Auto) 0.0 K/uL (0.0-0.7) 04/05/18 07:43 Baso # (Auto) 0.0 K/uL (0.0-0.2) 04/05/18 07:43 APTT 31 SECONDS (21-34) 04/04/18 07:24 D-Dimer, Quantitative 334 ng/mlDDU (0-243) H 04/03/18 19:42 Sodium 139 mmol/L (132-148) 04/05/18 07:43 Potassium 4.2 mmol/L (3.6-5.2) 04/05/18 07:43 Chloride 104 mmol/L (98-107) 04/05/18 07:43 Carbon Dioxide 27 mmol/L (22-30) 04/05/18 07:43 Anion Gap 12 (10-20) 04/05/18 07:43 BUN 16 mg/dL (7-17) 04/05/18 07:43 Creatinine 0.6 mg/dL (0.7-1.2) L 04/05/18 07:43 Est GFR ( Amer) > 60 04/05/18 07:43 Est GFR (Non-Af Amer) > 60 04/05/18 07:43 POC Glucose (mg/dL) 85 mg/dL (65-110) 04/03/18 22:49 Random Glucose 96 mg/dL (65-105) 04/05/18 07:43 Calcium 8.5 mg/dl (8.6-10.4) L 04/05/18 07:43 Phosphorus 2.8 mg/dL (2.5-4.5) 04/05/18 07:43 Magnesium 1.8 mg/dL (1.6-2.3) 04/05/18 07:43 Iron 102 ug/dL (37-170) 04/05/18 07:43 Total Bilirubin 0.5 mg/dL (0.2-1.3) 04/05/18 07:43 AST 87 U/L (14-36) H 04/05/18 07:43 ALT 57 U/L (9-52) H 04/05/18 07:43 Alkaline Phosphatase 72 U/L (38-126) 04/05/18 07:43 Total Protein 6.0 g/dL (6.3-8.3) L 04/05/18 07:43 Albumin 2.9 g/dL (3.5-5.0) L 04/05/18 07:43 Globulin 3.0 gm/dL (2.2-3.9) 04/05/18 07:43 Albumin/Globulin Ratio 1.0 (1.0-2.1) 04/05/18 07:43 Lipase 170 U/L (23-300) 04/03/18 09:19 Urine Color Marianela (YELLOW) 04/04/18 16:10 Urine Clarity Hazy (Clear) 04/04/18 16:10 Urine pH 7.0 (5.0-8.0) 04/04/18 16:10 Ur Specific [place] 1.018 (1.003-1.030) 04/04/18 16:10 Urine Protein Negative mg/dL (NEGATIVE) 04/04/18 16:10 Urine Glucose (UA) Normal mg/dL (Normal) 04/04/18 16:10 Urine Ketones Negative mg/dL (NEGATIVE) 04/04/18 16:10 Urine Blood 3+ (NEGATIVE) H 04/04/18 16:10 Urine Nitrate Positive (NEGATIVE) H 04/04/18 16:10 Urine Bilirubin 1+ (NEGATIVE) H 04/04/18 16:10 Urine Urobilinogen 4.0 mg/dL (0.2-1.0) H 04/04/18 16:10 Ur Leukocyte Esterase Neg Lorna/uL (Negative) 04/04/18 16:10 Urine WBC (Auto) 1 /hpf (0-5) 04/04/18 16:10 Urine RBC (Auto) 4 /hpf (0-3) H 04/04/18 16:10 Ur Squamous Epith Cells 5 /hpf (0-5) 04/04/18 16:10 Amorphous Sediment Few /ul (<OCC) H 04/04/18 16:10 Urine HCG, Qual Negative (NEGATIVE) 04/03/18 09:19 Urine Opiates Screen Negative (NEGATIVE) 04/03/18 09:19 Urine Methadone Screen Negative (NEGATIVE) 04/03/18 09:19 Ur Barbiturates Screen Negative (NEGATIVE) 04/03/18 09:19 Ur Phencyclidine Scrn Negative (NEGATIVE) 04/03/18 09:19 Ur Amphetamines Screen Negative (NEGATIVE) 09/05/18 09:19 U Benzodiazepines Scrn Negative (NEGATIVE) 04/03/18 09:19 U Oth Cocaine Metabols Negative (NEGATIVE) 04/03/18 09:19 U Cannabinoids Screen Negative (NEGATIVE) 04/03/18 09:19 Alcohol, Quantitative 73 mg/dl (0-10) H 04/03/18 09:19 Hepatitis A IgM Ab Negative (NEGATIVE) 04/04/18 10:02 Hep Bs Antigen Negative (NEGATIVE) 04/04/18 10:02 Hep B Core IgM Ab Negative (NEGATIVE) 04/04/18 10:02 Hepatitis C Antibody Negative (NEGATIVE) 04/04/18 10:02 Blood Type A POSITIVE 04/04/18 21:08 Antibody Screen Negative 04/04/18 21:08 Attending/Attestation - Attestation I have personally seen and examined this patient.: No I have fully participated in the care of the patient.: No I have reviewed all pertinent clinical information, including history, physical exam and plan: No Notes (Text): 04/05/18 16:00 Medical attending: I was informed that the patient was no longer pending arrest and that the charges had been dropped. Law enforcement had left the patient. I was then informed by staff that she was wishing to leave [facility]. By the time I rounded with the medical staff she had already left the hospital. Raleigh Graves
[2018-04-05 10:04] VITALS: O2SAT 100
== END 2018-04-05 09:34 | disposition left against medical advice (07) | DRG 749 ==
LOC: C.ER 07:44 → C.9E 12:12 → C.3T 12:50 → OBSVTOIN 14:07 → C.5S 04-04 00:42
PROVIDERS: ADMIT Hospitalist; ATTEND Hospitalist
DX: F10.239 Alcohol dependence with withdrawal, unspecified (principal); E87.6 Hypokalemia; K22.9 Disease of esophagus, unspecified; K44.9 Diaphragmatic hernia without obstruction or gangrene; F17.210 Nicotine dependence, cigarettes, uncomplicated; Y90.3 Blood alcohol level of 60-79 mg/100 ml; Z79.01 Long term (current) use of anticoagulants; Z81.1 Family history of alcohol abuse and dependence; Z86.711 Personal history of pulmonary embolism; Z91.14 Patient's other noncompliance with medication regimen; Z98.84 Bariatric surgery status